=== PATIENT | male | born 1950 | race Caucasian/White ===

== ENCOUNTER 2017-08-17 11:14 | Inpatient (IN) | payer MEDICARE, BC ==
[2017-08-17] MEDS ORDERED: Ondansetron 4 MG Tab.DIS PO PRN (15:48)
[2017-08-17] MEDS ORDERED: Temazepam 15 MG Cap PO PRN (15:48)
[2017-08-17] MEDS ORDERED: Ibuprofen 200 MG Tab PO PRN (15:48)
[2017-08-17] MEDS: Meropenem 1 GM SDV IVPUSH SCH (17:11)
[2017-08-17] MEDS: Acetaminophen/HYDROcodone 325-5 MG Tab PO PRN (18:14)
[2017-08-17] MEDS: Simvastatin 40 MG Tab PO SCH (20:25)
[2017-08-17] MEDS: Linezolid 600 MG in Premix Bag 1 BAG IV SCH (20:26)
[2017-08-17] MEDS: traMADol 50 MG Tab PO PRN (21:13)
--- NOTE | 2017-08-17 22:26 | HP ---
CHIEF COMPLAINT: Status post total hip replacement with postop infection. HISTORY: The patient is a 67-year-old well known to me, who was at [facility] for total hip arthroplasty. He postoperatively got a postop abscess and required surgical debridement and drainage. He has subsequently been placed on initially IV vancomycin, and he comes to us for ongoing completion of a six-week course of Zyvox and meropenem. PAST MEDICAL HISTORY: His past medical history is well known to me, includes a history of type 2 diabetes, hypertension, hyperlipidemia, and gout. PAST SURGICAL HISTORY: Includes his recent total hip arthroplasty. He has had a prior appendectomy, knee replacement, and a lumbar spine surgery. ALLERGIES: ALLERGIES TO MEDICATIONS ARE NONE. CURRENT MEDICATIONS: See chart. SOCIAL HISTORY: The patient is retired, [facility] He is a nonsmoker and nondrinker. REVIEW OF SYSTEMS: The patient at this time denies any headache, visual or auditory changes. Denies any fevers, chills, chest pain, shortness of breath, PND, orthopnea, or peripheral edema. Has had no cough or sputum production. Denies nausea, vomiting, diarrhea, constipation, melena, or hematochezia. He has had no urinary complaints. Does admit to drainage from his right hip wound, but not much for pain. He has not had any significant redness or erythema of the area. PHYSICAL EXAMINATION: GENERAL: He is pleasant, alert, and cooperative. VITAL SIGNS: Vitals are noted, see chart. HEENT: Grossly benign. NECK: Supple. No adenopathy is felt. Trachea midline. LUNGS: Sounds are clear throughout. CARDIAC: Tones are regular with a normal S1, S2. ABDOMEN: Obese, soft, and nontender without guarding, rebound, or rigidity. Good bowel sounds heard. EXTREMITIES: Lower extremities without any significant edema. Pulses are easily palpable. The right hip wound shows some distal erythema on its most inferior end. There is some sanguinous drainage not with odor. There is minimal tenderness here. Dressings are still applied. ASSESSMENT: 1. INFECTED TOTAL HIP ARTHROPLASTY. 2. TYPE 2 DIABETES. 3. HYPERTENSION. 4. HYPERLIPIDEMIA. 5. OBESITY. PLAN: Routine orders are accomplished. Dressing changes b.i.d. and p.r.n. Routine PICC line cares. We also will continue him on Zyvox and meropenem as previously ordered. No other changes at this time. PT and OT have been consulted. SALOMÓN/TJ /[id number]
[2017-08-18] MEDS: Meropenem 1 GM SDV IVPUSH SCH ×3 (00:32→15:50)
[2017-08-18] MEDS ORDERED: Non-Formulary Medication 1 Each (Levothyroxine [Levothyroxine] 175 MCG) PO SCH (07:00)
[2017-08-18] MEDS: Levothyroxine 50 MCG Tab PO SCH (07:23)
[2017-08-18] MEDS: Levothyroxine 125 MCG Tab PO SCH (07:23)
[2017-08-18] MEDS: traMADol 50 MG Tab PO PRN ×2 (07:23→20:35)
[2017-08-18 07:37] LABS: CHLORIDE,CL 100 mEq/L (98-106); SODIUM,NA 135 mEq/L (136-145)
[2017-08-18] MEDS ORDERED: Non-Formulary Medication 1 Each (Pioglitazone [Actos] 30 MG) PO SCH (08:00)
[2017-08-18] MEDS: Diltiazem 120 MG Cap.CD PO SCH (08:15)
[2017-08-18] MEDS: Furosemide 40 MG Tab PO SCH (08:15)
[2017-08-18] MEDS: Allopurinol 300 MG Tab PO SCH (08:15)
[2017-08-18] MEDS: Potassium Chloride 10 MEQ Tab.ER PO SCH (08:15)
[2017-08-18] MEDS: Aspirin 81 MG Tab.EC PO SCH (08:15)
[2017-08-18] MEDS: Lisinopril 20 MG Tab PO SCH (08:16)
[2017-08-18] MEDS: Linezolid 600 MG in Premix Bag 1 BAG IV SCH ×2 (08:18→19:57)
[2017-08-18] MEDS: Enoxaparin 40 MG/0.4 ML Syringe SUBCUT SCH (10:16)
[2017-08-18] MEDS: Acetaminophen/HYDROcodone 325-5 MG Tab PO PRN (11:20)
[2017-08-18] MEDS: Simvastatin 40 MG Tab PO SCH (19:57)
[2017-08-19] MEDS: Meropenem 1 GM SDV IVPUSH SCH ×4 (00:38→23:42)
[2017-08-19] MEDS: Levothyroxine 50 MCG Tab PO SCH (07:02)
[2017-08-19] MEDS: Levothyroxine 125 MCG Tab PO SCH (07:02)
[2017-08-19] MEDS: Linezolid 600 MG in Premix Bag 1 BAG IV SCH ×2 (08:37→19:33)
[2017-08-19] MEDS: Enoxaparin 40 MG/0.4 ML Syringe SUBCUT SCH (08:37)
[2017-08-19] MEDS: Potassium Chloride 10 MEQ Tab.ER PO SCH (08:38)
[2017-08-19] MEDS: Allopurinol 300 MG Tab PO SCH (08:38)
[2017-08-19] MEDS: Aspirin 81 MG Tab.EC PO SCH (08:39)
[2017-08-19] MEDS: Furosemide 40 MG Tab PO SCH (08:40)
[2017-08-19] MEDS: Lisinopril 20 MG Tab PO SCH (08:41)
[2017-08-19] MEDS: Diltiazem 120 MG Cap.CD PO SCH (08:42)
[2017-08-19] MEDS: traMADol 50 MG Tab PO PRN (09:04)
[2017-08-19] MEDS: Acetaminophen/HYDROcodone 325-5 MG Tab PO PRN ×2 (12:34→19:40)
[2017-08-19] MEDS: Simvastatin 40 MG Tab PO SCH (19:30)
[2017-08-20] MEDS: Levothyroxine 125 MCG Tab PO SCH (06:05)
[2017-08-20] MEDS: Levothyroxine 50 MCG Tab PO SCH (06:06)
[2017-08-20] MEDS: Acetaminophen/HYDROcodone 325-5 MG Tab PO PRN ×3 (06:08→19:27)
[2017-08-20] MEDS: Allopurinol 300 MG Tab PO SCH (08:43)
[2017-08-20] MEDS: Furosemide 40 MG Tab PO SCH (08:43)
[2017-08-20] MEDS: Meropenem 1 GM SDV IVPUSH SCH ×2 (08:43→17:25)
[2017-08-20] MEDS: Diltiazem 120 MG Cap.CD PO SCH (08:43)
[2017-08-20] MEDS: Aspirin 81 MG Tab.EC PO SCH (08:43)
[2017-08-20] MEDS: Lisinopril 20 MG Tab PO SCH (08:43)
[2017-08-20] MEDS: Potassium Chloride 10 MEQ Tab.ER PO SCH (08:43)
[2017-08-20] MEDS: Enoxaparin 40 MG/0.4 ML Syringe SUBCUT SCH (08:44)
[2017-08-20] MEDS: Linezolid 600 MG in Premix Bag 1 BAG IV SCH ×2 (08:44→19:28)
[2017-08-20] MEDS: Simvastatin 40 MG Tab PO SCH (19:26)
[2017-08-21] MEDS: Meropenem 1 GM SDV IVPUSH SCH ×4 (00:02→23:46)
[2017-08-21] MEDS: Acetaminophen/HYDROcodone 325-5 MG Tab PO PRN ×3 (03:21→19:21)
[2017-08-21] MEDS: Levothyroxine 50 MCG Tab PO SCH (06:10)
[2017-08-21] MEDS: Levothyroxine 125 MCG Tab PO SCH (06:11)
[2017-08-21] MEDS: Linezolid 600 MG in Premix Bag 1 BAG IV SCH ×2 (07:26→19:11)
[2017-08-21] MEDS: Enoxaparin 40 MG/0.4 ML Syringe SUBCUT SCH (07:27)
[2017-08-21] MEDS: Diltiazem 120 MG Cap.CD PO SCH (07:39)
[2017-08-21] MEDS: Allopurinol 300 MG Tab PO SCH (07:39)
[2017-08-21] MEDS: Furosemide 40 MG Tab PO SCH (07:39)
[2017-08-21] MEDS: Aspirin 81 MG Tab.EC PO SCH (07:40)
[2017-08-21] MEDS: Lisinopril 20 MG Tab PO SCH (07:40)
[2017-08-21] MEDS: Potassium Chloride 10 MEQ Tab.ER PO SCH (07:40)
[2017-08-21] MEDS: traMADol 50 MG Tab PO PRN (07:48)
[2017-08-21] MEDS: Simvastatin 40 MG Tab PO SCH (19:11)
[2017-08-22] MEDS: Acetaminophen/HYDROcodone 325-5 MG Tab PO PRN ×5 (01:11→20:22)
[2017-08-22] MEDS: Levothyroxine 125 MCG Tab PO SCH (06:26)
[2017-08-22] MEDS: Levothyroxine 50 MCG Tab PO SCH (06:26)
[2017-08-22] MEDS: Meropenem 1 GM SDV IVPUSH SCH ×3 (08:10→23:54)
[2017-08-22] MEDS: Diltiazem 120 MG Cap.CD PO SCH (08:11)
[2017-08-22] MEDS: Enoxaparin 40 MG/0.4 ML Syringe SUBCUT SCH (08:12)
[2017-08-22] MEDS: Furosemide 40 MG Tab PO SCH (08:12)
[2017-08-22] MEDS: Lisinopril 20 MG Tab PO SCH (08:12)
[2017-08-22] MEDS: Aspirin 81 MG Tab.EC PO SCH (08:12)
[2017-08-22] MEDS: Allopurinol 300 MG Tab PO SCH (08:12)
[2017-08-22] MEDS: Potassium Chloride 10 MEQ Tab.ER PO SCH (08:12)
[2017-08-22] MEDS: Linezolid 600 MG in Premix Bag 1 BAG IV SCH ×2 (08:13→19:41)
[2017-08-22] MEDS ORDERED: Potassium Chloride 10 MEQ Tab.ER ONE (08:32)
[2017-08-22] MEDS: Simvastatin 40 MG Tab PO SCH (19:40)
[2017-08-23] MEDS: Acetaminophen/HYDROcodone 325-5 MG Tab PO PRN ×4 (02:26→19:39)
[2017-08-23] MEDS: Levothyroxine 50 MCG Tab PO SCH (06:49)
[2017-08-23] MEDS: Levothyroxine 125 MCG Tab PO SCH (06:49)
[2017-08-23] MEDS: Aspirin 81 MG Tab.EC PO SCH (08:20)
[2017-08-23] MEDS: Furosemide 40 MG Tab PO SCH (08:20)
[2017-08-23] MEDS: Allopurinol 300 MG Tab PO SCH (08:21)
[2017-08-23] MEDS: Potassium Chloride 10 MEQ Tab.ER PO SCH (08:21)
[2017-08-23] MEDS: Diltiazem 120 MG Cap.CD PO SCH (08:21)
[2017-08-23] MEDS: Enoxaparin 40 MG/0.4 ML Syringe SUBCUT SCH (08:22)
[2017-08-23] MEDS: Lisinopril 20 MG Tab PO SCH (08:22)
[2017-08-23] MEDS: Meropenem 1 GM SDV IVPUSH SCH ×3 (08:22→23:59)
[2017-08-23] MEDS: Linezolid 600 MG in Premix Bag 1 BAG IV SCH ×2 (08:23→19:36)
[2017-08-23] MEDS: Simvastatin 40 MG Tab PO SCH (19:36)
[2017-08-24] MEDS: Acetaminophen/HYDROcodone 325-5 MG Tab PO PRN ×5 (00:07→18:12)
[2017-08-24] MEDS: Levothyroxine 125 MCG Tab PO SCH (06:42)
[2017-08-24] MEDS: Levothyroxine 50 MCG Tab PO SCH (06:42)
[2017-08-24] MEDS: Meropenem 1 GM SDV IVPUSH SCH ×3 (08:18→23:57)
[2017-08-24] MEDS: Enoxaparin 40 MG/0.4 ML Syringe SUBCUT SCH (08:18)
[2017-08-24] MEDS: Aspirin 81 MG Tab.EC PO SCH (08:19)
[2017-08-24] MEDS: Furosemide 40 MG Tab PO SCH (08:19)
[2017-08-24] MEDS: Allopurinol 300 MG Tab PO SCH (08:19)
[2017-08-24] MEDS: Lisinopril 20 MG Tab PO SCH (08:20)
[2017-08-24] MEDS: Potassium Chloride 10 MEQ Tab.ER PO SCH (08:20)
[2017-08-24] MEDS: Diltiazem 120 MG Cap.CD PO SCH (08:21)
[2017-08-24] MEDS: Linezolid 600 MG in Premix Bag 1 BAG IV SCH ×2 (08:24→20:13)
[2017-08-24] MEDS: traMADol 50 MG Tab PO PRN ×2 (12:20→20:08)
[2017-08-24] MEDS: Simvastatin 40 MG Tab PO SCH (20:08)
[2017-08-25] MEDS: Acetaminophen/HYDROcodone 325-5 MG Tab PO PRN ×5 (00:04→19:09)
[2017-08-25] MEDS: Levothyroxine 50 MCG Tab PO SCH (06:47)
[2017-08-25] MEDS: Levothyroxine 125 MCG Tab PO SCH (06:47)
[2017-08-25] MEDS: Lisinopril 20 MG Tab PO SCH (08:26)
[2017-08-25] MEDS: Furosemide 40 MG Tab PO SCH (08:27)
[2017-08-25] MEDS: traMADol 50 MG Tab PO PRN ×2 (08:27→14:51)
[2017-08-25] MEDS: Aspirin 81 MG Tab.EC PO SCH (08:27)
[2017-08-25] MEDS: Potassium Chloride 10 MEQ Tab.ER PO SCH (08:28)
[2017-08-25] MEDS: Allopurinol 300 MG Tab PO SCH (08:28)
[2017-08-25] MEDS: Diltiazem 120 MG Cap.CD PO SCH (08:28)
[2017-08-25] MEDS: Enoxaparin 40 MG/0.4 ML Syringe SUBCUT SCH (08:29)
[2017-08-25] MEDS: Meropenem 1 GM SDV IVPUSH SCH ×3 (08:29→23:33)
[2017-08-25] MEDS: Linezolid 600 MG in Premix Bag 1 BAG IV SCH ×2 (08:33→19:39)
[2017-08-25] MEDS: Simvastatin 40 MG Tab PO SCH (19:38)
[2017-08-26] MEDS: Acetaminophen/HYDROcodone 325-5 MG Tab PO PRN ×5 (01:19→20:20)
[2017-08-26] MEDS: Levothyroxine 50 MCG Tab PO SCH (06:02)
[2017-08-26] MEDS: Levothyroxine 125 MCG Tab PO SCH (06:02)
[2017-08-26] MEDS: Diltiazem 120 MG Cap.CD PO SCH (07:37)
[2017-08-26] MEDS: Allopurinol 300 MG Tab PO SCH (07:39)
[2017-08-26] MEDS: traMADol 50 MG Tab PO PRN (07:39)
[2017-08-26] MEDS: Aspirin 81 MG Tab.EC PO SCH (07:39)
[2017-08-26] MEDS: Potassium Chloride 10 MEQ Tab.ER PO SCH (07:39)
[2017-08-26] MEDS: Furosemide 40 MG Tab PO SCH (07:39)
[2017-08-26] MEDS: Lisinopril 20 MG Tab PO SCH (07:39)
[2017-08-26] MEDS: Enoxaparin 40 MG/0.4 ML Syringe SUBCUT SCH (07:40)
[2017-08-26] MEDS: Meropenem 1 GM SDV IVPUSH SCH ×2 (07:42→15:53)
[2017-08-26] MEDS: Linezolid 600 MG in Premix Bag 1 BAG IV SCH ×2 (07:44→20:21)
[2017-08-26] MEDS: Simvastatin 40 MG Tab PO SCH (20:20)
[2017-08-27] MEDS: Acetaminophen/HYDROcodone 325-5 MG Tab PO PRN ×5 (00:14→20:17)
[2017-08-27] MEDS: Meropenem 1 GM SDV IVPUSH SCH ×3 (00:14→16:09)
[2017-08-27] MEDS: Levothyroxine 125 MCG Tab PO SCH (06:06)
[2017-08-27] MEDS: Levothyroxine 50 MCG Tab PO SCH (06:06)
[2017-08-27] MEDS: Potassium Chloride 10 MEQ Tab.ER PO SCH (07:56)
[2017-08-27] MEDS: Diltiazem 120 MG Cap.CD PO SCH (07:57)
[2017-08-27] MEDS: Furosemide 40 MG Tab PO SCH (07:58)
[2017-08-27] MEDS: Allopurinol 300 MG Tab PO SCH (07:58)
[2017-08-27] MEDS: Aspirin 81 MG Tab.EC PO SCH (07:58)
[2017-08-27] MEDS: Lisinopril 20 MG Tab PO SCH (07:58)
[2017-08-27] MEDS: Enoxaparin 40 MG/0.4 ML Syringe SUBCUT SCH (07:59)
[2017-08-27] MEDS: Linezolid 600 MG in Premix Bag 1 BAG IV SCH ×2 (08:19→20:17)
[2017-08-27] MEDS: Simvastatin 40 MG Tab PO SCH (20:17)
[2017-08-28] MEDS: Meropenem 1 GM SDV IVPUSH SCH ×3 (00:16→16:19)
[2017-08-28] MEDS: Acetaminophen/HYDROcodone 325-5 MG Tab PO PRN ×5 (00:16→20:21)
[2017-08-28] MEDS: Levothyroxine 125 MCG Tab PO SCH (06:34)
[2017-08-28] MEDS: Levothyroxine 50 MCG Tab PO SCH (06:34)
[2017-08-28] MEDS: Diltiazem 120 MG Cap.CD PO SCH (07:45)
[2017-08-28] MEDS: Allopurinol 300 MG Tab PO SCH (07:46)
[2017-08-28] MEDS: Aspirin 81 MG Tab.EC PO SCH (07:46)
[2017-08-28] MEDS: Lisinopril 20 MG Tab PO SCH (07:46)
[2017-08-28] MEDS: Potassium Chloride 10 MEQ Tab.ER PO SCH (07:47)
[2017-08-28] MEDS: Enoxaparin 40 MG/0.4 ML Syringe SUBCUT SCH (07:47)
[2017-08-28] MEDS: Furosemide 40 MG Tab PO SCH (07:47)
[2017-08-28] MEDS: Linezolid 600 MG in Premix Bag 1 BAG IV SCH ×2 (07:48→20:21)
[2017-08-28] MEDS: Simvastatin 40 MG Tab PO SCH (20:21)
[2017-08-29] MEDS: Meropenem 1 GM SDV IVPUSH SCH ×4 (00:19→23:52)
[2017-08-29] MEDS: Acetaminophen/HYDROcodone 325-5 MG Tab PO PRN ×5 (00:19→21:08)
[2017-08-29] MEDS: Levothyroxine 50 MCG Tab PO SCH (06:39)
[2017-08-29] MEDS: Levothyroxine 125 MCG Tab PO SCH (06:39)
[2017-08-29] MEDS: Diltiazem 120 MG Cap.CD PO SCH (07:32)
[2017-08-29] MEDS: Furosemide 40 MG Tab PO SCH (07:32)
[2017-08-29] MEDS: Enoxaparin 40 MG/0.4 ML Syringe SUBCUT SCH (07:34)
[2017-08-29] MEDS: Potassium Chloride 10 MEQ Tab.ER PO SCH (07:34)
[2017-08-29] MEDS: Aspirin 81 MG Tab.EC PO SCH (07:34)
[2017-08-29] MEDS: Allopurinol 300 MG Tab PO SCH (07:34)
[2017-08-29] MEDS: Lisinopril 20 MG Tab PO SCH (07:36)
[2017-08-29] MEDS: Linezolid 600 MG in Premix Bag 1 BAG IV SCH ×2 (07:39→19:53)
[2017-08-29] MEDS: Simvastatin 40 MG Tab PO SCH (19:53)
[2017-08-30] MEDS: Acetaminophen/HYDROcodone 325-5 MG Tab PO PRN ×4 (01:09→13:29)
[2017-08-30] MEDS: Levothyroxine 50 MCG Tab PO SCH (07:00)
[2017-08-30] MEDS: Levothyroxine 125 MCG Tab PO SCH (07:00)
[2017-08-30] MEDS: Linezolid 600 MG in Premix Bag 1 BAG IV SCH ×2 (07:00→19:22)
[2017-08-30] MEDS: Enoxaparin 40 MG/0.4 ML Syringe SUBCUT SCH (07:26)
[2017-08-30] MEDS: Diltiazem 120 MG Cap.CD PO SCH (07:28)
[2017-08-30] MEDS: Aspirin 81 MG Tab.EC PO SCH (07:29)
[2017-08-30] MEDS: Potassium Chloride 10 MEQ Tab.ER PO SCH (07:29)
[2017-08-30] MEDS: Lisinopril 20 MG Tab PO SCH (07:30)
[2017-08-30] MEDS: Allopurinol 300 MG Tab PO SCH (07:30)
[2017-08-30] MEDS: Furosemide 40 MG Tab PO SCH (07:30)
[2017-08-30] MEDS: Meropenem 1 GM SDV IVPUSH SCH ×3 (08:20→23:46)
[2017-08-30] MEDS: oxyCODONE 5 MG Tab PO PRN ×2 (17:00→21:00)
[2017-08-30] MEDS: Simvastatin 40 MG Tab PO SCH (19:23)
[2017-08-31] MEDS: oxyCODONE 5 MG Tab PO PRN ×5 (01:00→19:51)
[2017-08-31] MEDS: Levothyroxine 125 MCG Tab PO SCH (06:31)
[2017-08-31] MEDS: Levothyroxine 50 MCG Tab PO SCH (06:31)
[2017-08-31] MEDS: Enoxaparin 40 MG/0.4 ML Syringe SUBCUT SCH (08:00)
[2017-08-31] MEDS: Potassium Chloride 10 MEQ Tab.ER PO SCH (08:01)
[2017-08-31] MEDS: Lisinopril 20 MG Tab PO SCH (08:02)
[2017-08-31] MEDS: Diltiazem 120 MG Cap.CD PO SCH (08:02)
[2017-08-31] MEDS: Furosemide 40 MG Tab PO SCH (08:03)
[2017-08-31] MEDS: Aspirin 81 MG Tab.EC PO SCH (08:03)
[2017-08-31] MEDS: Allopurinol 300 MG Tab PO SCH (08:03)
[2017-08-31] MEDS: Meropenem 1 GM SDV IVPUSH SCH ×2 (08:03→16:44)
[2017-08-31] MEDS: Linezolid 600 MG in Premix Bag 1 BAG IV SCH ×2 (08:04→19:42)
--- NOTE | 2017-08-31 17:12 | PCM.PN ---
- General Info Date of Service: 08/31/17 Functional Status: Reports: Tolerating Diet, Ambulating. Denies: Pain Controlled (increased his pain meds to oxycodone yesterday but patient continues to have pain) - Review of Systems General: Reports: Fatigue. Denies: Fever, Weakness HEENT: Reports: No Symptoms Pulmonary: Denies: Shortness of Breath, Cough, Sputum Cardiovascular: Denies: Chest Pain, Dyspnea on Exertion, Edema Gastrointestinal: Denies: Abdominal Pain, Nausea, Vomiting Genitourinary: Reports: No Symptoms Musculoskeletal: Reports: Joint Pain Skin: Reports: Other (incisional pain) Neurological: Reports: No Symptoms - Patient Data Vitals - Most Recent: Last Vital Signs Temp 98.3 F 08/31/17 08:00 Pulse 83 08/31/17 08:02 Resp 18 08/31/17 08:00 BP 157/76 H 08/31/17 08:02 Pulse Ox 96 08/31/17 08:00 Weight - Most Recent: 251 lb Lab Results Last 24 Hours: Laboratory Results - last 24 hr 08/31/17 Range/Units 07:15 POC Glucose 105 (75-105) mg/dl Med Orders - Current: Current Medications Allopurinol (Zyloprim) 300 mg PO DAILY [facility] Last Admin: 08/31/17 08:03 Dose: 300 mg Aspirin (Halfprin) 81 mg PO DAILY [facility] Last Admin: 08/31/17 08:03 Dose: 81 mg Diltiazem HCl (Cardizem Cd) 240 mg PO DAILY [facility] Last Admin: 08/31/17 08:02 Dose: 240 mg Enoxaparin Sodium (Lovenox) 40 mg SUBCUT Q24H [facility] Last Admin: 08/31/17 08:00 Dose: 40 mg Furosemide (Lasix) 40 mg PO DAILY [facility] Last Admin: 08/31/17 08:03 Dose: 40 mg Heparin Sodium (Porcine) (Heparin Lock Flush 100 Units/Ml) 300 units FLUSH 0900 ,2100 [facility] Last Admin: 08/31/17 10:09 Dose: 300 units Linezolid 600 mg/ Premix 300 mls @ 300 mls/hr IV Q12H [facility] Last Admin: 08/31/17 08:04 Dose: 300 mls/hr Ibuprofen (Motrin) 400 mg PO Q6H PRN PRN Reason: Pain (mild 1-3) Levothyroxine Sodium (Levothyroxine) 125 mcg PO 0700 [facility] Last Admin: 08/31/17 06:31 Dose: 125 mcg Levothyroxine Sodium (Synthroid) 50 mcg PO 0700 [facility] Last Admin: 08/31/17 06:31 Dose: 50 mcg Lisinopril (Prinivil) 20 mg PO DAILY [facility] Last Admin: 08/31/17 08:02 Dose: 20 mg Meropenem (Merrem) 1 gm IVPUSH Q8H [facility] Last Admin: 08/31/17 16:44 Dose: 1 gm Ondansetron HCl (Zofran Odt) 8 mg PO Q6H PRN PRN Reason: nausea, able to take PO Oxycodone HCl (Oxycodone) 5 mg PO Q4H PRN PRN Reason: Pain Last Admin: 08/31/17 14:52 Dose: 5 mg Potassium Chloride (Klor-Con 10) 40 meq PO DAILY [facility] Last Admin: 08/31/17 08:01 Dose: 40 meq Simvastatin (Zocor) 80 mg PO BEDTIME [facility] Last Admin: 08/30/17 19:23 Dose: 80 mg Temazepam (Restoril) 15 mg PO BEDTIME PRN PRN Reason: Sleep Discontinued Medications Hydrocodone Bitart/Acetaminophen ([place] 325-5 Mg) 1 tab PO Q4H PRN PRN Reason: Pain (moderate 4-6) Last Admin: 08/25/17 10:13 Dose: 1 tab Hydrocodone Bitart/Acetaminophen ([place] 325-5 Mg) 1 - 2 tab PO Q6H PRN PRN Reason: Pain (moderate 4-6) Last Admin: 08/26/17 05:46 Dose: 1 tab Hydrocodone Bitart/Acetaminophen ([place] 325-5 Mg) 1 tab PO Q4H PRN PRN Reason: Pain (moderate 4-6) Last Admin: 08/30/17 13:29 Dose: 1 tab Heparin Sodium (Porcine) (Heparin Lock Flush 100 Units/Ml) Confirm Administered Dose 500 units .ROUTE .STK-MED ONE Stop: 08/17/17 21:51 Last Admin: 08/17/17 21:30 Dose: 500 units Heparin Sodium (Porcine) (Heparin Lock Flush 100 Units/Ml) Confirm Administered Dose 500 units .ROUTE .STK-MED ONE Stop: 08/18/17 16:04 Last Admin: 08/18/17 17:35 Dose: Not Given Linezolid 600 mg/ Premix 300 mls @ 300 mls/hr IV Q12H [facility] Last Admin: 08/18/17 08:18 Dose: 300 mls/hr Potassium Chloride (Klor-Con 10) Confirm Administered Dose 10 meq .ROUTE .STK- MED ONE Stop: 08/22/17 08:33 Last Admin: 08/22/17 08:45 Dose: Not Given Tramadol HCl (Ultram) 50 - 100 mg PO Q4H PRN PRN Reason: Pain Last Admin: 08/26/17 07:39 Dose: 100 mg - Exam General: Alert, Oriented HEENT: Mucous Membr. Moist/[place] Neck: Supple Lungs: Clear to Auscultation, Normal Respiratory Effort Cardiovascular: Regular Rate, Regular Rhythm GI/Abdominal Exam: Normal Bowel Sounds, Soft, Non-Tender Skin: Warm, Dry Wound/Incisions: Healing Well Neurological: No New Focal Deficit - Problem List & Annotations (1) Postoperative infection SNOMED Code(s): 33938507 Code(s): T81.4XXA - INFECTION FOLLOWING A PROCEDURE, INITIAL ENCOUNTER Status: Acute Priority: High Current Visit: Yes Qualifiers: Encounter type: initial encounter Qualified Code(s): T81.4XXA - Infection following a procedure, initial encounter - Problem List Review Problem List Initiated/Reviewed/Updated: Yes - Assessment Assessment:: Postoperative infection following a total hip replacement - Plan Plan:: Patient seen today for 14 day recertification. Is progressing well. States incision is healing well and has minimal drainage now with changes. Does continue to have pain. Was switched to oxycodone from hydrocodone due to ongoing complaints of pain but does not feel it works any better. He is taking a tablet every 4 hours. Denies cough or abdominal pain. Appetite is good. Bowels working well. Incision is healing well. Only small opening with serous drainage noted. No redness or warmth. PICC line intact. Continue Zyvox and Meropenum for full 6 weeks. Ongoing PT. Continue to evaluate pain meds and control.
[2017-08-31] MEDS: Simvastatin 40 MG Tab PO SCH (19:41)
[2017-09-01] MEDS: oxyCODONE 5 MG Tab PO PRN ×5 (00:03→19:33)
[2017-09-01] MEDS: Levothyroxine 125 MCG Tab PO SCH (06:04)
[2017-09-01] MEDS: Levothyroxine 50 MCG Tab PO SCH (06:04)
[2017-09-01] MEDS: Potassium Chloride 10 MEQ Tab.ER PO SCH (07:28)
[2017-09-01] MEDS: Allopurinol 300 MG Tab PO SCH (07:29)
[2017-09-01] MEDS: Aspirin 81 MG Tab.EC PO SCH (07:29)
[2017-09-01] MEDS: Furosemide 40 MG Tab PO SCH (07:29)
[2017-09-01] MEDS: Lisinopril 20 MG Tab PO SCH (07:29)
[2017-09-01] MEDS: Enoxaparin 40 MG/0.4 ML Syringe SUBCUT SCH (07:30)
[2017-09-01] MEDS: Meropenem 1 GM SDV IVPUSH SCH ×3 (07:30→15:14)
[2017-09-01] MEDS: Linezolid 600 MG in Premix Bag 1 BAG IV SCH ×2 (07:32→19:36)
[2017-09-01] MEDS: Diltiazem 120 MG Cap.CD PO SCH (07:46)
[2017-09-01] MEDS: Simvastatin 40 MG Tab PO SCH (19:32)
[2017-09-02] MEDS: oxyCODONE 5 MG Tab PO PRN ×6 (00:30→23:04)
[2017-09-02] MEDS: Meropenem 1 GM SDV IVPUSH SCH ×4 (00:31→23:04)
[2017-09-02] MEDS: Levothyroxine 50 MCG Tab PO SCH (07:24)
[2017-09-02] MEDS: Levothyroxine 125 MCG Tab PO SCH (07:24)
[2017-09-02] MEDS: Enoxaparin 40 MG/0.4 ML Syringe SUBCUT SCH (08:00)
[2017-09-02] MEDS: Potassium Chloride 10 MEQ Tab.ER PO SCH (08:00)
[2017-09-02] MEDS: Diltiazem 120 MG Cap.CD PO SCH (08:01)
[2017-09-02] MEDS: Furosemide 40 MG Tab PO SCH (08:03)
[2017-09-02] MEDS: Lisinopril 20 MG Tab PO SCH (08:03)
[2017-09-02] MEDS: Aspirin 81 MG Tab.EC PO SCH (08:03)
[2017-09-02] MEDS: Allopurinol 300 MG Tab PO SCH (08:03)
[2017-09-02] MEDS: Linezolid 600 MG in Premix Bag 1 BAG IV SCH ×2 (08:28→20:05)
[2017-09-02] MEDS: Simvastatin 40 MG Tab PO SCH (20:05)
[2017-09-03] MEDS: oxyCODONE 5 MG Tab PO PRN ×5 (02:59→22:34)
[2017-09-03] MEDS: Levothyroxine 125 MCG Tab PO SCH (07:10)
[2017-09-03] MEDS: Levothyroxine 50 MCG Tab PO SCH (07:10)
[2017-09-03] MEDS: Meropenem 1 GM SDV IVPUSH SCH ×2 (07:30→17:41)
[2017-09-03] MEDS: Linezolid 600 MG in Premix Bag 1 BAG IV SCH ×2 (07:34→19:33)
[2017-09-03] MEDS: Aspirin 81 MG Tab.EC PO SCH (07:40)
[2017-09-03] MEDS: Potassium Chloride 10 MEQ Tab.ER PO SCH (07:40)
[2017-09-03] MEDS: Diltiazem 120 MG Cap.CD PO SCH (07:40)
[2017-09-03] MEDS: Furosemide 40 MG Tab PO SCH (07:41)
[2017-09-03] MEDS: Enoxaparin 40 MG/0.4 ML Syringe SUBCUT SCH (07:41)
[2017-09-03] MEDS: Lisinopril 20 MG Tab PO SCH (07:42)
[2017-09-03] MEDS: Allopurinol 300 MG Tab PO SCH (07:42)
[2017-09-03] MEDS: Simvastatin 40 MG Tab PO SCH (19:33)
[2017-09-04] MEDS: Meropenem 1 GM SDV IVPUSH SCH ×3 (00:37→17:13)
[2017-09-04] MEDS: oxyCODONE 5 MG Tab PO PRN ×4 (04:43→21:33)
[2017-09-04] MEDS: Levothyroxine 50 MCG Tab PO SCH (06:45)
[2017-09-04] MEDS: Levothyroxine 125 MCG Tab PO SCH (06:46)
[2017-09-04] MEDS: Linezolid 600 MG in Premix Bag 1 BAG IV SCH ×2 (07:20→19:47)
[2017-09-04] MEDS: Diltiazem 120 MG Cap.CD PO SCH (07:24)
[2017-09-04] MEDS: Furosemide 40 MG Tab PO SCH (07:25)
[2017-09-04] MEDS: Aspirin 81 MG Tab.EC PO SCH (07:25)
[2017-09-04] MEDS: Potassium Chloride 10 MEQ Tab.ER PO SCH (07:25)
[2017-09-04] MEDS: Enoxaparin 40 MG/0.4 ML Syringe SUBCUT SCH (07:26)
[2017-09-04] MEDS: Lisinopril 20 MG Tab PO SCH (07:26)
[2017-09-04] MEDS: Allopurinol 300 MG Tab PO SCH (07:27)
[2017-09-04] MEDS: Simvastatin 40 MG Tab PO SCH (19:47)
[2017-09-05] MEDS: Meropenem 1 GM SDV IVPUSH SCH ×3 (00:11→15:15)
[2017-09-05] MEDS: oxyCODONE 5 MG Tab PO PRN ×4 (04:58→20:14)
[2017-09-05] MEDS: Furosemide 40 MG Tab PO SCH (08:05)
[2017-09-05] MEDS: Diltiazem 120 MG Cap.CD PO SCH (08:05)
[2017-09-05] MEDS: Lisinopril 20 MG Tab PO SCH (08:05)
[2017-09-05] MEDS: Potassium Chloride 10 MEQ Tab.ER PO SCH (08:06)
[2017-09-05] MEDS: Allopurinol 300 MG Tab PO SCH (08:06)
[2017-09-05] MEDS: Aspirin 81 MG Tab.EC PO SCH (08:06)
[2017-09-05] MEDS: Enoxaparin 40 MG/0.4 ML Syringe SUBCUT SCH (08:06)
[2017-09-05] MEDS: Levothyroxine 50 MCG Tab PO SCH (08:09)
[2017-09-05] MEDS: Levothyroxine 125 MCG Tab PO SCH (08:09)
[2017-09-05] MEDS: Linezolid 600 MG in Premix Bag 1 BAG IV SCH ×2 (08:10→20:17)
[2017-09-05] MEDS: Simvastatin 40 MG Tab PO SCH (20:14)
[2017-09-06] MEDS: Meropenem 1 GM SDV IVPUSH SCH ×3 (00:06→16:36)
[2017-09-06] MEDS: oxyCODONE 5 MG Tab PO PRN ×3 (00:15→20:29)
[2017-09-06] MEDS: Levothyroxine 50 MCG Tab PO SCH (08:04)
[2017-09-06] MEDS: Levothyroxine 125 MCG Tab PO SCH (08:04)
[2017-09-06] MEDS: Allopurinol 300 MG Tab PO SCH (09:04)
[2017-09-06] MEDS: Aspirin 81 MG Tab.EC PO SCH (09:04)
[2017-09-06] MEDS: Furosemide 40 MG Tab PO SCH (09:04)
[2017-09-06] MEDS: Lisinopril 20 MG Tab PO SCH (09:04)
[2017-09-06] MEDS: Enoxaparin 40 MG/0.4 ML Syringe SUBCUT SCH (09:04)
[2017-09-06] MEDS: Potassium Chloride 10 MEQ Tab.ER PO SCH (09:04)
[2017-09-06] MEDS: Diltiazem 120 MG Cap.CD PO SCH (09:04)
[2017-09-06] MEDS: Linezolid 600 MG in Premix Bag 1 BAG IV SCH ×2 (13:53→20:29)
[2017-09-06] MEDS: Simvastatin 40 MG Tab PO SCH (20:29)
[2017-09-07] MEDS: oxyCODONE 5 MG Tab PO PRN ×6 (00:42→22:06)
[2017-09-07] MEDS: Meropenem 1 GM SDV IVPUSH SCH ×4 (00:42→23:52)
[2017-09-07] MEDS: Levothyroxine 50 MCG Tab PO SCH (06:35)
[2017-09-07] MEDS: Levothyroxine 125 MCG Tab PO SCH (06:35)
[2017-09-07] MEDS: Diltiazem 120 MG Cap.CD PO SCH (08:34)
[2017-09-07] MEDS: Potassium Chloride 10 MEQ Tab.ER PO SCH (08:34)
[2017-09-07] MEDS: Lisinopril 20 MG Tab PO SCH (08:35)
[2017-09-07] MEDS: Allopurinol 300 MG Tab PO SCH (08:35)
[2017-09-07] MEDS: Aspirin 81 MG Tab.EC PO SCH (08:35)
[2017-09-07] MEDS: Enoxaparin 40 MG/0.4 ML Syringe SUBCUT SCH (08:36)
[2017-09-07] MEDS: Furosemide 40 MG Tab PO SCH (08:36)
[2017-09-07] MEDS: Linezolid 600 MG in Premix Bag 1 BAG IV SCH ×2 (08:36→20:58)
[2017-09-07] MEDS: Simvastatin 40 MG Tab PO SCH (20:58)
[2017-09-08] MEDS: oxyCODONE 5 MG Tab PO PRN ×5 (04:10→20:05)
[2017-09-08] MEDS: Levothyroxine 50 MCG Tab PO SCH (06:12)
[2017-09-08] MEDS: Levothyroxine 125 MCG Tab PO SCH (06:12)
[2017-09-08] MEDS: Linezolid 600 MG in Premix Bag 1 BAG IV SCH ×2 (08:08→19:58)
[2017-09-08] MEDS: Aspirin 81 MG Tab.EC PO SCH (08:09)
[2017-09-08] MEDS: Diltiazem 120 MG Cap.CD PO SCH (08:09)
[2017-09-08] MEDS: Lisinopril 20 MG Tab PO SCH (08:09)
[2017-09-08] MEDS: Furosemide 40 MG Tab PO SCH (08:09)
[2017-09-08] MEDS: Allopurinol 300 MG Tab PO SCH (08:10)
[2017-09-08] MEDS: Potassium Chloride 10 MEQ Tab.ER PO SCH (08:10)
[2017-09-08] MEDS: Enoxaparin 40 MG/0.4 ML Syringe SUBCUT SCH (08:11)
[2017-09-08] MEDS: Meropenem 1 GM SDV IVPUSH SCH ×2 (08:11→15:52)
[2017-09-08] MEDS: Simvastatin 40 MG Tab PO SCH (20:04)
[2017-09-09] MEDS: Meropenem 1 GM SDV IVPUSH SCH ×2 (00:04→07:38)
[2017-09-09] MEDS: oxyCODONE 5 MG Tab PO PRN ×3 (00:08→08:13)
[2017-09-09] MEDS: Levothyroxine 50 MCG Tab PO SCH (06:08)
[2017-09-09] MEDS: Levothyroxine 125 MCG Tab PO SCH (06:08)
[2017-09-09] MEDS: Linezolid 600 MG in Premix Bag 1 BAG IV SCH (07:38)
[2017-09-09] MEDS: Allopurinol 300 MG Tab PO SCH (07:39)
[2017-09-09] MEDS: Potassium Chloride 10 MEQ Tab.ER PO SCH (07:39)
[2017-09-09] MEDS: Aspirin 81 MG Tab.EC PO SCH (07:40)
[2017-09-09] MEDS: Furosemide 40 MG Tab PO SCH (07:40)
[2017-09-09] MEDS: Diltiazem 120 MG Cap.CD PO SCH (07:40)
[2017-09-09] MEDS: Enoxaparin 40 MG/0.4 ML Syringe SUBCUT SCH (07:41)
[2017-09-09] MEDS: Lisinopril 20 MG Tab PO SCH (07:42)
--- NOTE | 2017-09-11 21:29 | PCM.DCSUM1 ---
Discharge Summary - Hospital Course Free Text/Narrative:: Patient admitted on 08-17-2017 for ongoing antibiotics due to postop infection following a right total hip replacement. Postoperatively, patient developed an abscess adn required surgical debridement and drainage. He initially was placed on Vancomycin and switched to Zyvox and Meropenem. He had surgical removal of the prosthesis and a spacer was placed. Admitted for IV antibiotics , pain control and physical therapy. Routine dressing changes and PICC line cares. - Discharge Data Discharge Date: 09/09/17 Discharge Disposition: Home, Self-Care 01 Condition: Good - Discharge Diagnosis/Problem(s) (1) Postoperative infection SNOMED Code(s): 07866346 ICD Code: T81.4XXA - INFECTION FOLLOWING A PROCEDURE, INITIAL ENCOUNTER Status: Acute Priority: High Qualifiers: Encounter type: initial encounter Qualified Code(s): T81.4XXA - Infection following a procedure, initial encounter - Patient Summary/Data Complications: none Consults: Consultations 08/17/17 15:48 OT Evaluation and Treatment [CONS] Routine PT Evaluation and Treatment [CONS] Routine Hospital Course: Patient's strength has improved during stay. Incision is now clean and dry and without any redness. Does ambulate about in the halls with walker per self. Pain meds reducing pain to a tolerable level. Completed IV course of Zyvox and Meropenum. Will discharge home on Zyvox oral meds and Percocet for pain. Follow up with Dr. Guzman in September as planned. - Patient Instructions Diet: Diabetic Diet Activity: As Tolerated Notify Provider of: Fever, Increased Pain, Swelling and Redness, Drainage - Discharge Plan Prescriptions/Med Rec: Linezolid [Zyvox] 600 mg PO Q12H 28 Days #60 tablet oxyCODONE 5 mg PO Q4H PRN #72 tablet PRN Reason: Pain Home Medications: Home Meds Allopurinol [Zyloprim] 300 mg PO DAILY 08/17/17 [History] Aspirin [Ecotrin] 81 mg PO DAILY 08/17/17 [History] Cholecalciferol (Vitamin D3) [Vitamin D3] 4,000 unit PO DAILY 08/17/17 [History] Diltiazem [Cardizem CD] 240 mg PO DAILY 08/17/17 [History] Furosemide [Furosemide] 40 mg PO DAILY 08/17/17 [History] Levothyroxine 175 mcg PO ACBRK 08/17/17 [History] Multivit-Min/FA/Lycopen/Lutein [Centrum Silver Men Tablet] 1 each PO DAILY 08/17 [History] Naproxen Sodium [Aleve] 1 - 2 tab PO BID PRN 08/17/17 [History] Potassium Chloride 40 meq PO DAILY 08/17/17 [History] Quinapril HCl [Accupril] 40 mg PO DAILY 08/17/17 [History] Simvastatin [Zocor] 80 mg PO BEDTIME 08/17/17 [History] oxyCODONE HCl/Acetaminophen [oxyCODONE-Acetaminophen 5-325] 1 - 2 tab PO Q4H PRN 08/17/17 [History] traMADol [Ultram] 1 - 2 tab PO Q4H PRN 08/17/17 [History] Linezolid [Zyvox] 600 mg PO Q12H 28 Days #60 tablet 09/09/17 [Rx] oxyCODONE 5 mg PO Q4H PRN #72 tablet 09/09/17 [Rx] Referrals: Williams Guzman MD [Physician] - (Dr. Guzman in September as scheduled) - Discharge Summary/Plan Comment DC Time >30 min.: No Discharge Summary/Plan Comment: Discharge home on Zyvox and Percocet. Follow up appointments scheduled. - General Info Date of Service: 09/09/17 Admission Dx/Problem (Free Text: Postoperative infection Functional Status: Reports: Pain Controlled, Tolerating Diet, Ambulating - Review of Systems General: Denies: Fever, Weakness, Fatigue HEENT: Reports: No Symptoms Pulmonary: Denies: Shortness of Breath, Cough Cardiovascular: Denies: Chest Pain, Edema, Lightheadedness Gastrointestinal: Denies: Abdominal Pain, Nausea, Vomiting Musculoskeletal: Reports: Joint Pain Skin: Reports: Other (incision right hip) Neurological: Reports: No Symptoms Psychiatric: Reports: No Symptoms - Patient Data Vitals - Most Recent: Last Vital Signs Temp 98.1 F 09/09/17 07:53 Pulse 78 09/09/17 07:53 Resp 18 09/09/17 07:53 BP 149/62 H 09/09/17 07:53 Pulse Ox 97 09/09/17 07:53 Weight - Most Recent: 247 lb 9.6 oz Med Orders - Current: Current Medications Discontinued Medications Hydrocodone Bitart/Acetaminophen ([place] 325-5 Mg) 1 tab PO Q4H PRN PRN Reason: Pain (moderate 4-6) Last Admin: 08/25/17 10:13 Dose: 1 tab Hydrocodone Bitart/Acetaminophen ([place] 325-5 Mg) 1 - 2 tab PO Q6H PRN PRN Reason: Pain (moderate 4-6) Last Admin: 08/26/17 05:46 Dose: 1 tab Hydrocodone Bitart/Acetaminophen ([place] 325-5 Mg) 1 tab PO Q4H PRN PRN Reason: Pain (moderate 4-6) Last Admin: 08/30/17 13:29 Dose: 1 tab Allopurinol (Zyloprim) 300 mg PO DAILY [facility] Last Admin: 09/09/17 07:39 Dose: 300 mg Aspirin (Halfprin) 81 mg PO DAILY [facility] Last Admin: 09/09/17 07:40 Dose: 81 mg Diltiazem HCl (Cardizem Cd) 240 mg PO DAILY [facility] Last Admin: 09/09/17 07:40 Dose: 240 mg Enoxaparin Sodium (Lovenox) 40 mg SUBCUT Q24H [facility] Last Admin: 09/09/17 07:41 Dose: 40 mg Furosemide (Lasix) 40 mg PO DAILY [facility] Last Admin: 09/09/17 07:40 Dose: 40 mg Heparin Sodium (Porcine) (Heparin Lock Flush 100 Units/Ml) Confirm Administered Dose 500 units .ROUTE .STK-MED ONE Stop: 08/17/17 21:51 Last Admin: 08/17/17 21:30 Dose: 500 units Heparin Sodium (Porcine) (Heparin Lock Flush 100 Units/Ml) 300 units FLUSH 0900 ,2100 [facility] Last Admin: 09/09/17 08:14 Dose: 300 units Heparin Sodium (Porcine) (Heparin Lock Flush 100 Units/Ml) Confirm Administered Dose 500 units .ROUTE .STK-MED ONE Stop: 08/18/17 16:04 Last Admin: 08/18/17 17:35 Dose: Not Given Linezolid 600 mg/ Premix 300 mls @ 300 mls/hr IV Q12H [facility] Last Admin: 08/18/17 08:18 Dose: 300 mls/hr Linezolid 600 mg/ Premix 300 mls @ 300 mls/hr IV Q12H [facility] Last Admin: 09/09/17 07:38 Dose: 300 mls/hr Ibuprofen (Motrin) 400 mg PO Q6H PRN PRN Reason: Pain (mild 1-3) Levothyroxine Sodium (Levothyroxine) 125 mcg PO 0700 [facility] Last Admin: 09/09/17 06:08 Dose: 125 mcg Levothyroxine Sodium (Synthroid) 50 mcg PO 0700 [facility] Last Admin: 09/09/17 06:08 Dose: 50 mcg Lisinopril (Prinivil) 20 mg PO DAILY [facility] Last Admin: 09/09/17 07:42 Dose: 20 mg Meropenem (Merrem) 1 gm IVPUSH Q8H [facility] Last Admin: 09/09/17 07:38 Dose: 1 gm Ondansetron HCl (Zofran Odt) 8 mg PO Q6H PRN PRN Reason: nausea, able to take PO Oxycodone HCl (Oxycodone) 5 mg PO Q4H PRN PRN Reason: Pain Last Admin: 09/09/17 08:13 Dose: 5 mg Potassium Chloride (Klor-Con 10) 40 meq PO DAILY [facility] Last Admin: 09/09/17 07:39 Dose: 40 meq Potassium Chloride (Klor-Con 10) Confirm Administered Dose 10 meq .ROUTE .STK- MED ONE Stop: 08/22/17 08:33 Last Admin: 08/22/17 08:45 Dose: Not Given Simvastatin (Zocor) 80 mg PO BEDTIME [facility] Last Admin: 09/08/17 20:04 Dose: 80 mg Temazepam (Restoril) 15 mg PO BEDTIME PRN PRN Reason: Sleep Tramadol HCl (Ultram) 50 - 100 mg PO Q4H PRN PRN Reason: Pain Last Admin: 08/26/17 07:39 Dose: 100 mg - Exam General: Reports: Alert, Oriented HEENT: Reports: Mucous Membr. Moist/[place] Neck: Reports: Supple Lungs: Reports: Clear to Auscultation, Normal Respiratory Effort Cardiovascular: Reports: Regular Rate, Regular Rhythm GI/Abdominal Exam: Normal Bowel Sounds, Soft, Non-Tender Extremities: Normal Inspection, No Pedal Edema Skin: Reports: Warm, Dry Wound/Incisions: Reports: Healing Well, No Drainage. Denies: Erythema Psy/Mental Status: Reports: Alert, Normal Affect, Normal Mood *Q Meaningful Use (DIS) - VTE *Q VTE Criteria *Q: - Stroke *Q Stroke Criteria *Q: - AMI *Q AMI Criteria *Q:
== END 2017-09-09 11:50 | disposition home or self-care (01) | DRG 950 ==
LOC: UNDOADMIN 14:32 → CC.MS 14:32
PROVIDERS: ADMIT Family Medicine; ATTEND Family Medicine
DX: T81.4XXD Infection following a procedure, subsequent encounter (principal); Z47.1 Aftercare following joint replacement surgery; Z79.2 Long term (current) use of antibiotics; Z96.641 Presence of right artificial hip joint; Z96.659 Presence of unspecified artificial knee joint; I10 Essential (primary) hypertension; E11.9 Type 2 diabetes mellitus without complications; E78.5 Hyperlipidemia, unspecified; M10.9 Gout, unspecified; Z79.84 Long term (current) use of oral hypoglycemic drugs; Z79.82 Long term (current) use of aspirin
CPT/HCPCS: 36415; 80048; 82962; 85025; 86140; 97161-GP; A9270-GY; J1642; J1650; J2020; J2185

== ENCOUNTER → 2019-03-09 | Day surgery (SDC) | payer MEDICARE, BC ==
[~2019-03-09] MED LIST: Lactated Ringers 1,000 ML IV SCH; Propofol 200 MG/20 ML SDV IV ONE
--- NOTE | 2019-03-09 09:33 | OR ---
DATE OF OPERATION: 03/09/2019 PREOPERATIVE DIAGNOSIS: SCREENING COLONOSCOPY. POSTOPERATIVE DIAGNOSIS: SCREENING COLONOSCOPY. SURGEON: Williams Lamar MD PROCEDURE: FULL-LENGTH COLONOSCOPY WITH FORCEPS POLYP REMOVAL X1 ANESTHESIA: MAC via [employer]ING [employer]AL[employer]ARD INSPECTOR. COMPLICATIONS: None. SPECIMEN: Small 3 mm hyperplastic polyp, sigmoid colon. FINDINGS: 1. Full-length colonoscopy. 2. Minimal to mild sigmoid diverticulosis. 3. Small sessile polyp, likely hyperplastic, mid sigmoid colon. RECOMMENDATIONS: Followup colonoscopy in 5 years. INDICATIONS: The patient was in for a routine physical. He has never had a prior screening colon procedure. We recommended colonoscopy. DESCRIPTION OF PROCEDURE: The patient was prepped and draped, placed in the left lateral decubitus position. Lubricated Olympus colonoscope was inserted and easily advanced to the cecum. Direct visualization of the ileocecal valve and appendiceal orifice was accomplished. Bowel prep was adequate. Upon withdrawal of the scope, cecum, right transverse, and descending colons were completely benign. The patient did have a few scattered diverticula in the sigmoid, very mild if any in severity. No inflammatory changes seen. Around 45 cm, the patient had a small flat sessile polyp, likely hyperplastic, removed in its entirety with the forceps. The rest of the colon showed no polyps, masses, ulceration, bleeding sites, vascular abnormalities, or signs of colitis. The rectal vault was benign. Retroflexion showed no perianal lesions. Air was suctioned. Scope removed without complication. SALOMÓN/TJ /[id number]
== END ==
LOC: CC.SDS 06:53
PROVIDERS: ATTEND Family Medicine
DX: Z12.11 Encounter for screening for malignant neoplasm of colon (principal); K63.5 Polyp of colon; K57.30 Diverticulosis of large intestine without perforation or abscess without bleeding; I12.9 Hypertensive chronic kidney disease with stage 1 through stage 4 chronic kidney disease, or unspecified chronic kidney disease; E11.22 Type 2 diabetes mellitus with diabetic chronic kidney disease; N18.9 Chronic kidney disease, unspecified; E78.00 Pure hypercholesterolemia, unspecified; E03.9 Hypothyroidism, unspecified; M10.9 Gout, unspecified; N40.1 Benign prostatic hyperplasia with lower urinary tract symptoms; R35.1 Nocturia; E66.01 Morbid (severe) obesity due to excess calories; Z68.39 Body mass index [BMI] 39.0-39.9, adult; Z87.891 Personal history of nicotine dependence; Z79.82 Long term (current) use of aspirin; Z79.84 Long term (current) use of oral hypoglycemic drugs; Z79.899 Other long term (current) drug therapy
CPT/HCPCS: 45380; J2704; J7120; 00812

== ENCOUNTER 2022-08-27 19:10 | Emergency (ER) | payer MEDICARE, BC ==
[2022-08-27] MEDS ORDERED: Sodium Chloride 0.9% 10 ML Syringe FLUSH PRN ×2 (19:24→19:58)
[2022-08-27] MEDS ORDERED: Sodium Chloride 0.9% 1,000 ML IV ONE ×2 (19:26→20:18)
[2022-08-27] MEDS ORDERED: Acetaminophen 650 MG Supp RECTAL ONE (19:43)
[2022-08-27 19:59] VITALS: BP 104/53; PULSE 99
[2022-08-27] MEDS ORDERED: VANCOmycin 1.75 GM/350 ML 1.75 GM in Premix Bag 1 BAG IV ONE (20:04)
[2022-08-27] MEDS ORDERED: cefTRIAXone 1 GM Vial IVPUSH ONE (20:08)
[2022-08-27 20:25] LABS: CORONAVIRUS COVID-19 NAA NEGATIVE (NEGATIVE); RESPIRATORY SYNCYTIAL VIR NAA NEGATIVE (NEGATIVE)
[2022-08-27 20:34] LABS: PTT,PARTIAL THROMBOPLSTIN TIME 25.2 SEC (23.2-32.3)
[2022-08-27] MEDS ORDERED: LORazepam 2 MG/ML Syringe IVPUSH ONE (21:02)
[2022-08-27] MEDS ORDERED: Lidocaine 2% HCl 6 ML Jel ONE (21:27)
== END 2022-08-27 22:47 ==
LOC: CC.ED 19:10
DX: A41.9 Sepsis, unspecified organism (principal); C76.0 Malignant neoplasm of head, face and neck; D70.9 Neutropenia, unspecified; R50.81 Fever presenting with conditions classified elsewhere; I10 Essential (primary) hypertension; E11.9 Type 2 diabetes mellitus without complications; Z79.82 Long term (current) use of aspirin; Z79.899 Other long term (current) drug therapy; Z20.822 Contact with and (suspected) exposure to COVID-19
CPT/HCPCS: 0241U; 36415; 51702; 71045; 80053; 82150; 83605; 85025; 85610; 85730; 86140; 87040; 87070; 87077; 87186; 87205; 96361; 96365; 96366; 96375; 99284; 99285-25; A9270-GY; J0696; J3370; J7030

== ENCOUNTER 2022-09-26 11:53 | Inpatient (IN) | payer OTHER, MEDICARE, BC ==
[2022-09-26 12:00] VITALS: BP 147/61; PULSE 84
== END 2022-10-01 01:30 | disposition expired | DRG 951 ==
LOC: CC.ED 11:53 → CC.MS 13:00
PROVIDERS: ADMIT Nurse Practitioner Family; ATTEND Nurse Practitioner Family
DX: Z51.5 Encounter for palliative care (principal); C76.0 Malignant neoplasm of head, face and neck; I10 Essential (primary) hypertension; M19.90 Unspecified osteoarthritis, unspecified site; E11.9 Type 2 diabetes mellitus without complications; Z96.649 Presence of unspecified artificial hip joint; Z96.659 Presence of unspecified artificial knee joint; E07.9 Disorder of thyroid, unspecified; Z79.899 Other long term (current) drug therapy; Z86.14 Personal history of Methicillin resistant Staphylococcus aureus infection
CPT/HCPCS: 99284; 99285